=== PATIENT | male | born 1975 | race Hispanic/Latino ===

== ENCOUNTER → 2025-01-10 | Day surgery (SDC) | payer BC, OTHER ==
[~2025-01-10] MED LIST: ATORVASTATIN CA80 MG PO; DEXAMETHASONE SOD PHOS INJ 4 MG/ML SDV ONE; FENTANYL CITRATE/PF 100MCG/2 ML INJ ONE; FISH OIL 1,0001 EAC7; HYDRALAZINE HCL 20 MG/ML VIAL ONE; LIDOCAINE HCL 2% LOCAL INJ 5 ML SDV VIAL INJ ONE; LOSARTAN POTASS25 MG PO; MEPERIDINE HCL INJ 25 MG/ML VIAL ONE; MIDAZOLAM HCL 2 MG/2 ML VIAL ONE; MORINGA; ONDANSETRON HCL INJ 2MG/ML 2ML 2 MG/ML VIAL ONE; OZEMPIC0.25 MG/02; PROPOFOL IV EMULSION 10 MG/ML 20 ML VIAL ONE; SUCCINYLCHOLINE CHLORIDE 20 MG/ML 10ML VIAL ONE
[2025-01-10] MEDS: CEFAZOLIN SODIUM 2 GM ONE (07:12)
[2025-01-10] MEDS: LACTATED RINGER'S 1,000 ML ONE (07:12)
[2025-01-10 08:21] VITALS: TEMP 98
[2025-01-10] MEDS: FENTANYL CITRATE/PF 100MCG/2 ML INJ IV ONE ×2 (08:36→08:48)
[2025-01-10] MEDS: MEPERIDINE HCL INJ 25 MG/ML VIAL IV ONE (08:43)
[2025-01-10] MEDS: ONDANSETRON HCL INJ 2MG/ML 2ML 2 MG/ML VIAL ONE (09:15)
[2025-01-10 09:30] VITALS: BP 159/85; PULSE 72; RESP 16; O2SAT 98
== END | disposition home or self-care (01) ==
LOC: OR 05:30
PROVIDERS: ATTEND Surgery
DX: M20.021 Boutonniere deformity of right finger(s) (principal); M24.549 Contracture, unspecified hand; I10 Essential (primary) hypertension; E78.5 Hyperlipidemia, unspecified; E66.01 Morbid (severe) obesity due to excess calories; Z79.85 Long-term (current) use of injectable non-insulin antidiabetic drugs; Z79.899 Other long term (current) drug therapy; Z68.41 Body mass index [BMI] 40.0-44.9, adult
CPT/HCPCS: 26426; 26445; 36415; 82948; 93005; C1713 ×2; J0330; J0360; J1100; J2003; J2175; J2250; J2405; J2704; J3010; J7121